=== PATIENT | female | born 1990 | race Caucasian/White ===

== ENCOUNTER 2020-08-01 21:47 | Emergency (ER) | payer OTHER, SELFPAY ==
[2020-08-01 21:52] VITALS: BP 120/60; PULSE 86; RESP 18; TEMP 37; O2SAT 100; BMI 25.0
--- NOTE | 2020-08-02 02:35 | ED.ALLEREA ---
HPI - Allergic Reaction General Chief complaint: Allergic Reaction Stated complaint: ALLERGIC REACTION Time Seen by Provider: 08/01/20 23:08 Source: patient Mode of arrival: ambulatory Limitations: no limitations History of Present Illness HPI narrative: Patient comes emergency room complaining of itchiness around her face. Patient states it started around 18:30 while she was working. Patient states that prior to arrival she took 25 mg of Benadryl. Patient has no trouble solving, no oropharyngeal edema, no shortness of breath. Patient states she has an allergy to powdered gloves, but did not use them at work. complaint: hives Related Data Allergies Allergy/AdvReac Type Severity Reaction Status Date / Time POWDER GLOVES Allergy Intermediate RASH Uncoded 08/01/20 21:52 Review of Systems Review of Systems: Constitutional : No Weight loss, No Fever, No Chills, No Night Sweats, No Fatigue, No Malaise ENT/Mouth : No Hearing loss, No Ear Pain, No Nasal Congestion, No Sinus Pain, No Hoarseness, No sore throat, No Rhinorrhea, No Swallowing Difficulty Eyes: No Eye Pain, No Swelling, No Redness, No Foreign Body, No Discharge, No Vision Changes Cardiovascular : No Chest Pain, No SOB, No Dyspnea on Exertion, No Orthopnea, No Edema, No Palpitations Respiratory : No Cough, No Sputum, No Wheezing, No Smoke Exposure, No Dyspnea Gastrointestinal : No Nausea, No Vomiting, No Diarrhea, No Constipation, No abdominal Pain, No Hematochezia, No Melena Genitourinary : no irregular bleeding, No Dysuria, No Urinary Frequency, No Hematuria, No Urinary Incontinence, No Urgency, No Flank Pain, No Urinary Flow Changes, No Hesitancy Musculoskeletal : No joint pain, No Myalgias, No Joint Swelling Skin : Hives in the face neck and chest, now nearly resolved Neuro : No Weakness, No Numbness, No Paresthesias, No Loss of Consciousness, No Dizziness, No Headache Psych : No Anxiety/Panic, No Depression, No SI/HI/AH/VH, No Social Issues, Heme/Lymph: No Bruising, No Bleeding,No Lymphadenopathy Endocrine : No Polyuria, No Polydipsia, No Temperature Intolerance PMFSH Social History Social History Advance Directives: No Advance Directives Information Provided: No Patient : No Physical Exam Vital Signs: Vital Signs: Last Vital Signs Temp 98.6 F 08/01/20 21:52 Pulse 86 08/01/20 21:52 Resp 18 08/01/20 21:52 BP 120/60 08/01/20 21:52 Pulse Ox 100 08/01/20 21:52 Body Mass Index 25.0 Appearance: Alert. Oriented X3. No acute distress. Eyes: Pupils equal, round and reactive to light. ENT: Pharynx normal. Neck: Normal inspection. Neck supple. No lymph nodes noted. No crepitus CVS: Normal heart rate and rhythm. Pulses normal. Normal S1 and S2 Respiratory: No respiratory distress. Breath sounds normal. No Wheezing. No rales Abdomen: Soft and nontender. No rigidity. No distention. good BS x4 Skin: Skin warm and dry. Minimal hives in 3 cm x 3 cm patch in the left side of the face, otherwise skin is clear Extremities: No lower extremity edema. No lower extremity edema. No Lacerations. No Rash Neuro: Oriented X 3. No motor deficit. No sensory deficit. Moving all extermities. No slurred speech. Course Course Course Narrative: Patient received 1 dose of p.o. prednisone, Benadryl, Pepcid. Patient has no trouble breathing, oxygen saturation 100% on room air, lungs clear. Patient likely had a mild allergic reaction, the Benadryl started working prior to her arrival. Discharge Plan Discharge Clinical Impression: Allergic reaction Qualifiers: Encounter type: initial encounter Qualified Code(s): T78.40XA - Allergy, unspecified, initial encounter Patient Disposition: Home, Self-Care Instructions: General Allergic Reaction (ED) Additional Instructions: Please follow-up with your primary care physician tomorrow. If you have any worsening or new symptoms, please return to the emergency room or call 911
[2020-08-02 03:01] VITALS: BP 111/48; PULSE 69; RESP 16
[2020-08-02] MEDS: predniSONE 20 MG TABLET 60 MG PO (03:01)
[2020-08-02] MEDS: Famotidine 20 MG TABLET PO (03:01)
[2020-08-02] MEDS: diphenhydrAMINE HCL 25 MG TABLET PO (03:01)
--- NOTE | 2020-08-02 03:10 | PC.NURSE ---
pt has slight redness to face, unknown allergen. pt reports she does not have any food allergies, did not have anything to eat at work. pt denies any dyspnea, angioedema or difficulty swallowing/throat tightness.
== END 2020-08-02 03:05 | disposition home or self-care (01) ==
PROVIDERS: Emergency Provider Emergency Medicine
DX: T78.40XA Allergy, unspecified, initial encounter (principal); X58.XXXA Exposure to other specified factors, initial encounter
CPT/HCPCS: 99283; Q0163

== ENCOUNTER 2023-05-17 18:37 | Emergency (ER) | payer OTHER, SELFPAY ==
--- NOTE | ~2023-05-17 | XR_ITS ---
EXAMINATION: XR CHEST CLINICAL INFORMATION: Cough COMPARISON: 02/13/2019 TECHNIQUE: 2 views of the chest were obtained. FINDINGS: No significant abnormality is noted involving the heart, lungs, mediastinum, bony thorax or soft tissues. XR/XR chest 2V IMPRESSION: Unremarkable examination, without interval change.
[2023-05-17 18:51] VITALS: BP 133/80; PULSE 79; RESP 18; TEMP 36.9; O2SAT 99; BMI 31.0
--- NOTE | 2023-05-17 18:52 | ED_ITS ---
HPI - General Adult General Chief complaint: Upper Respiratory Symptoms Stated complaint: cough, left eye pain Time Seen by Provider: 05/17/23 19:09 Related Data Previous Rx's Medication Instructions Recorded azithromycin 250 mg tablet See Rx Instructions PO .COMPLEX #6 05/17/23 (Zithromax Z-Chinmay) tabs benzonatate 200 mg capsule 200 mg PO BID PRN cough #10 caps 05/17/23 polymyxin B sulfate 10,000 1 drp ophthalmic (eye) QID 5 days 05/17/23 unit-trimethoprim 1 mg/mL eye drops #10 mL Allergies Allergy/AdvReac Type Severity Reaction Status Date / Time POWDER GLOVES Allergy Intermediate RASH Uncoded 08/01/20 21:52 [facility] Social History Social History Alcohol intake: current Alcohol intake frequency: holidays/special occasions only Smoked in Last 30 Days: Yes Use of substances other than those prescribed or required for medical reasons: Yes Substance Use Type: Marijuana Advance Directives: No Advance Directives Information Provided: No Patient : No Physical Exam ED Vital Signs: Vital Signs - 24 hr 05/17/23 18:51 Temperature 98.5 F Pulse Rate 79 Respiratory Rate 18 Blood Pressure 133/80 Pulse Oximetry 99 Oxygen Delivery Method Room Air BMI result Body Mass Index 31.0 Course Course Course Narrative: Complains of cough runny nose body aches for for 5 days Serology and x-rays ordered This rapid medical exam done in triage pending full evaluation and dispo by ER provider Medical Decision Making Lab Data Labs: Lab Results 05/17/23 Range/Units 18:57 Influenza Type A (PCR) NEGATIVE (Negative) Influenza Type B (PCR) NEGATIVE (Negative) RSV RNA Qual (PCR) NEGATIVE (Negative) SARS-CoV-2 RNA (RT-PCR) NEGATIVE (Negative) S. pyogenes GrpA REA Negative (Negative) Discharge Plan Discharge Clinical Impression: Bronchitis, Conjunctivitis Patient Disposition: Home, Self-Care Additional Instructions: chest x-ray and COVID and flu tests were all negative But as you have developed a worsening cough I wrote a prescription for Zithromax antibiotic I wrote a prescription for eyedrops but it is very likely that this redness in her eye is from the virus so I recommend waiting a day or 2 before starting the eyedrops as you might not need them Return any time if worse Prescriptions: New azithromycin [Zithromax Z-Chinmay] 250 mg tablet See Rx Instructions .ROUTE .COMPLEX Qty: 6 0RF Rx Instructions: For 250 mg dose pack: take 500 mg today (day 1), then 250 mg for 4 days (days 2-5) polymyxin B sulf-trimethoprim 10,000 unit- 1 mg/mL drops 1 drp ophthalmic (eye) QID 5 Days Qty: 10 0RF benzonatate 200 mg capsule 200 mg PO BID PRN (Reason: cough) Qty: 10 0RF Stand Alone Forms: Work/School Release
[2023-05-17 19:18] LABS: IDNOW Serial# 08D9AD1C; Strep A Nucleic Acid Negative (Negative)
[2023-05-17 19:41] LABS: Influenza A PCR NEGATIVE (Negative); Influenza B PCR NEGATIVE (Negative); Resp Syncy Virus RNA Qual PCR NEGATIVE (Negative); SARS COV2 PCR INHOUSE NEGATIVE (Negative)
[2023-05-17 20:55] VITALS: BP 120/78; PULSE 70; RESP 16; TEMP 36.8
== END 2023-05-17 20:57 | disposition home or self-care (01) ==
PROVIDERS: Physician Assistant Medical; Emergency Provider Emergency Medicine Emergency Medical Services
DX: J40 Bronchitis, not specified as acute or chronic (principal); H10.9 Unspecified conjunctivitis
CPT/HCPCS: 0241U; 71046; 87651; 99281; 99283